=== PATIENT | female | born 1985 | race Caucasian/White ===

== ENCOUNTER 2019-10-02 10:33 | Inpatient (IN) | payer OTHER ==
--- NOTE | 2019-10-02 11:03 | ED ---
Psychiatric Complaint - HPI Summary HPI Summary: 33-year-old female presents to the emergency department today with a chief complaint of auditory hallucinations and feeling unwell for approximately 48-72 hours. The patient currently denies suicidal ideation or homicidal ideation. Patient denies physical pain at this time. Patient states she had some wine yesterday evening but has had no more recent alcohol use or recreational drug use. Patient is tangential in conversation and is unable to answer many of our questions. Patient is calm and pleasant however, confused. Patient denies fever, chest pain, abdominal pain, pain with urination, rash. Surgical history and family history is not contributory. Patient's significant other is with her who states he is concerned for her mental well-being and believes she is having a "psychotic break." - History Of Current Complaint Chief Complaint: EDMentalHealth Time Seen by Provider: 10/02/19 10:50 Hx Obtained From: Patient, Family/[place] - boyfriend Onset/Duration: Gradual Onset Timing: Constant Severity Initially: Moderate Severity Currently: Moderate Character: Anxious Associated Signs And Symptoms: Positive: Hallucinating, Paranoid Behavior, Sleep Disturbance, Appetite Change Related History: Positive For: Prior Psychiatric Issues Has Suicidal: Denies: Thoughts Has Homicidal: Denies: Thoughts - Allergies/Home Medications Allergies/Adverse Reactions: Allergies Allergy/AdvReac Type Severity Reaction Status Date / Time No Known Allergies Allergy Verified 10/02/19 10:44 Home Medications: Home Medications Levonorgestrel (IUD) (NF) [Mirena (NF)] 20 mcg IU ONCE 10/02/19 [History Confirmed 10/02/19] PMH/Surg Hx/FS Hx/Imm Hx Infectious Disease History: No Infectious Disease History: Denies: Traveled Outside the [place] in Last 30 Days Review of Systems Constitutional: Negative Eyes: Negative ENT: Negative Cardiovascular: Negative Respiratory: Negative Gastrointestinal: Negative Genitourinary: Negative Musculoskeletal: Negative Skin: Negative Neurological/Mental Status: Negative Psychological: Normal All Other Systems Reviewed And Are Negative: Yes Physical Exam - Summary Physical Exam Summary: Patient is tangential and conversation. Patient is in no acute distress. Patient makes poor eye contact and conversation. Affect normal. Triage Information Reviewed: Yes Vital Signs On Initial Exam: Initial Vitals Temp Pulse Resp BP Pulse Ox 98.9 F 101 18 144/107 98 10/02/19 10:36 10/02/19 10:36 10/02/19 10:36 10/02/19 10:36 10/02/19 10:36 Vital Signs Reviewed: Yes Appearance: Positive: Well-Appearing, No Pain Distress, Well-Nourished Skin: Positive: Warm, Skin Color Reflects Adequate Perfusion Eyes: Positive: EOMI, MARQUITA ENT: Positive: Hearing grossly normal Respiratory/Lung Sounds: Positive: Clear to Auscultation, Breath Sounds Present Cardiovascular: Positive: RRR, S1, S2 Abdomen Description: Positive: Nontender, Soft Bowel Sounds: Positive: Present Musculoskeletal: Positive: Normal, Strength/ROM Intact Neurological: Positive: Sensory/Motor Intact, Alert, Oriented to Person Place, Time, Normal Gait, Facial Symmetry, Speech Normal Psychiatric: Positive: Normal, Anxious AVPU Assessment: Alert Procedures - Sedation Patient Received Moderate/Deep Sedation with Procedure: No Diagnostics - Vital Signs Vital Signs Temp Pulse Resp BP Pulse Ox 10/02/19 10:36 98.9 F 101 18 144/107 98 - Laboratory Result Diagrams: 10/02/19 11:07 10/02/19 11:07 Lab Statement: Any lab studies that have been ordered have been reviewed, and results considered in the medical decision making process. Course/Dx - Course Course Of Treatment: Patient was evaluated in the emergency department today for suicidal ideation. Patient was seen and examined their vital signs are stable and they were afebrile. Upon arrival to emergency department the patient was placed in a safe room, placed under observation and changed into hospital scrubs. Their belongings were collected and placed in a locked box. Laboratory studies were ordered for mental health clearance including urinalysis and toxicology. Labs returned showing no significant abnormalities. Tox toxicology screening negative. Patient was cleared for mental health evaluation and disposition by psychiatric services. Psychiatry, Dr. Melendez believed the patient would benefit from inpatient treatment. Patient admitted to [facility] psychiatric department on voluntary admission. - Differential Dx/Clinical Impression Differential Diagnosis/HQI/PQRI: Positive: Acute Psychosis, Anxiety, Suicide Attempt, Suicidal Ideation, Suicidal Gesture Provider Diagnosis: Acute psychosis - Physician Notifications Discussed Care Of Patient With: Silvio Melendez - believed the patient would benefit from inpatient treatment. Patient admitted to mental health facility with voluntary admission. Instructed by Provider To: Admit As Inpatient Discharge ED - Sign-Out/Discharge Documenting (check all that apply): Patient Departure - Discharge Plan Condition: Stable [place] [place] Disposition and Condition Condition: STABLE Disposition: Psychiatric Facility [facility]
[2019-10-02 11:15] LABS: Urine Appearance Clear; Urine Bilirubin Negative (Negative); Urine Blood Negative (Negative); Urine Color Straw; Urine Glucose Negative (Negative); Urine Ketones Negative (Negative); Urine Nitrite Negative (Negative); Urine Protein Negative (Negative); Urine Specific Gravity 1.002 (1.010-1.030); Urine Urobilinogen Negative (Negative)
[2019-10-02 11:18] LABS: ABS Lymphocytes 0.9 10^3/ul (1.0-4.8); ABS Monocytes 0.6 10^3/ul (0-0.8); ABS Neutrophils 5.8 10^3/ul (1.5-7.7); Eosinophil % 0.2 %; Hematocrit 43 % (35-47); Hemoglobin 14.5 g/dL (12.0-16.0); Lymphocyte % 12.8 %; Mean Corpuscular HGB Conc 34 g/dL (31-36); Mean Corpuscular Hemoglobin 31 pg (27-31); Mean Corpuscular Volume 91 fL (80-97); Mean Platelet Volume 8.7 fL (7.4-10.4); Nucleated Red Blood Cells % 0.1; Platelet Count 249 10^3/uL (150-450); Red Blood Count 4.72 10^6 /uL (3.70-4.87); Red Cell Distribution Width 13 % (10-15); White Blood Count 7.3 10^3/uL (3.5-10.8)
[2019-10-02 11:35] LABS: ALT 18 U/L (7-52); AST 28 U/L (13-39); Albumin 5.3 g/dL (3.2-5.2); Alkaline Phosphatase 72 U/L (34-104); Anion Gap 10 mmol/L (2-11); BUN/Creatinine Ratio 9.6 (8-20); Blood Urea Nitrogen 8 mg/dL (6-24); CO2 Carbon Dioxide 24 mmol/L (22-32); Calcium 10.2 mg/dL (8.6-10.3); Chloride 105 mmol/L (101-111); EGFR Non-African American 80.2 (>60); Globulin 2.7 g/dL (2-4); Glucose 115 mg/dL (70-100); Potassium 3.8 mmol/L (3.5-5.0); Sodium 139 mmol/L (135-145)
[2019-10-02 11:37] LABS: Urine Benzodiazepine Screen None Detected (None Detect); Urine Opiates Screen None Detected (None Detect)
[2019-10-02 11:52] LABS: Acetaminophen < 15 mcg/mL; Alcohol 11 mg/dL (<10); Salicylate < 2.50 mg/dL (<30)
[2019-10-02 12:07] LABS: TSH (Thyroid Stimulating Horm) 1.22 mcIU/mL (0.34-5.60)
[2019-10-02] MEDS ORDERED: Acetaminophen TAB* 325 MG PO PRN (17:21)
[2019-10-02] MEDS ORDERED: Al Hydrox/Mg Hydrox/Simet LIQ* 30 ML UDC PO PRN (17:21)
[2019-10-02] MEDS ORDERED: hydrOXYzine HCL TAB* 50 MG PO PRN (17:24)
[2019-10-02] MEDS: chlorproMAZINE TAB* 50 MG Q6H PRN AGITATION PO (19:19)
[2019-10-02] MEDS ORDERED: diPHENhydraMINE PO* 50 MG PO ONE (21:28)
[2019-10-02] MEDS ORDERED: Haloperidol TAB* 5 MG PO ONE (21:28)
[2019-10-02] MEDS ORDERED: LORazepam TAB(*) 1 MG PO ONE (21:28)
[2019-10-03] MEDS: chlorproMAZINE TAB* 50 MG Q6H PRN AGITATION PO (03:40)
[2019-10-03] MEDS: Vitamin THERAPEUTIC TAB PO SCH (09:07)
[2019-10-03 10:00] LABS: BUN/Creatinine Ratio 12.6 (8-20); EGFR African American 91.9 (>60); EGFR Non-African American 75.9 (>60); Magnesium 2.2 mg/dL (1.9-2.7); Potassium 3.6 mmol/L (3.5-5.0)
--- NOTE | 2019-10-03 10:17 | CONS ---
CC: Dr. Guzman * CONSULTATION NOTE: DATE OF CONSULT: 10/03/19 REQUESTING PHYSICIAN: Dr. Guzman from Psychiatry. PRIMARY CARE PROVIDER: [facility] Office CHIEF COMPLAINT: "I feel weird." HISTORY OF PRESENT ILLNESS: Mishel Rolle is a 33-year-old female who was brought into the ED for "a psychotic break" on 10/02/19. The patient was delusional, hyperactive overnight, got a dose of Atarax. Today in the morning, when the nurse checked the patient's vitals, heart rate was noted to be in the 170s. The patient otherwise apart feeling tired and having dry mouth did not voice any complaints. Medicine Service was asked to evaluate the patient in regards to tachycardia. PAST MEDICAL HISTORY: The patient does not report any past medical history. PAST SURGICAL HISTORY: No previous surgeries. MEDICATIONS: The patient stated that a couple of days ago, she took a couple of sleeping pills since she could not sleep. She does not remember the name. FAMILY HISTORY: Mother 10 years ago of pancreatic cancer. Father healthy. SOCIAL HISTORY: The patient denies any tobacco, alcohol or drug use. 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 She lives with her boyfriend. REVIEW OF SYSTEMS: The patient stated she feels "wired." She stated that her mouth is dry. She denies any chest pain, shortness of breath, or palpitations. She states that "everyone is worried at [employer] due to Sainz Virus." When asked if she is worried, she stated that she feels safer now. All the remaining 12 systems were reviewed with the patient and were otherwise negative. PHYSICAL EXAMINATION: Blood pressure of 124/82, heart rate of 118 and regular, respiratory rate 16, oxygen saturation 98% on room air, temperature 98.0. General: The patient is a pleasant 33-year-old female who is in any acute distress. She appears to have a flight of ideas, hyperactive, walking down the hallways. Otherwise, in no acute distress. The patient is alert and oriented x2. HEENT: Head atraumatic, normocephalic. Eyes: Pupils are equal and reactive to light and accommodation. Oropharynx is clear. Mucosa moist. Neck : Supple. No JVD. No bruits bilaterally. Cardiovascular: Regular rate and rhythm, tachycardia. No murmur. Respiratory: Clear to auscultation bilaterally. Abdomen: Soft, nontender. Bowel sounds are present in all 4 quadrants. Extremities: There is no edema. Pulses are +2 bilaterally. No clubbing, no cyanosis. Neuro Evaluation: Speech is clear. Cranial nerves II through XII grossly intact. Motor strength is 5/5 bilaterally. DIAGNOSTIC STUDIES/LAB DATA: Obtained yesterday showed white blood cell count of 7.3, hemoglobin of 14.5, hematocrit of 43, and platelets of 249. Sodium is 139, potassium 3.8, chloride 105, carbon dioxide 24, BUN 8, creatinine 0.83. Liver function is unremarkable. TSH of 1.22. Urinalysis was grossly unremarkable with low specific gravity of 1.002. Toxicology screen from yesterday showed alcohol level of 11, otherwise no salicylates, no opiates, no acetaminophen. The patient's EKG showed sinus tachycardia with a heart rate of 118 beats per minute with nonspecific ST changes. There was no old EKG available for comparison. ASSESSMENT AND PLAN: Mishel Rolle is a 33-year-old female who was found to be tachycardic in the morning. I am unsure if she actually had a heart rate in the 170s, although it is possible if she was agitated or upset. Currently, she is tachycardic with the heart rate in the 110s. Her EKG does not show any marked abnormalities. Her electrolytes were okay yesterday. I suspect this is all behavioral. I defer the patient's treatment back to Psychiatry. Thank you very much for allowing our service to see your patient in consultation who we will follow on as needed basis. [id number]/[facility] #: [id number] [facility]
[2019-10-03] MEDS ORDERED: OLANzapine TAB*ODT* 10 MG TAB PO PRN (11:03)
--- NOTE | 2019-10-03 12:31 | PN ---
BSU: Group Therapy Note - Service Type Service Type: 70100 Group Psychotherapy - Cognitive Behavioral Group Note: Mishel was bizarre in group this morning, needing redirection to attend to conversation. She attended briefly before exiting the group.
[2019-10-03 15:08] LABS: ABS Basophils 0.1 10^3/ul (0-0.2); ABS Eosinophils 0.1 10^3/ul (0-0.6); ABS Lymphocytes 1.8 10^3/ul (1.0-4.8); ABS Monocytes 0.5 10^3/ul (0-0.8); ABS Neutrophils 2.8 10^3/ul (1.5-7.7); Eosinophil % 1.9 %; Hematocrit 39 % (35-47); Hemoglobin 13.3 g/dL (12.0-16.0); Lymphocyte % 34.1 %; Mean Corpuscular HGB Conc 34 g/dL (31-36); Mean Corpuscular Hemoglobin 31 pg (27-31); Mean Corpuscular Volume 91 fL (80-97); Mean Platelet Volume 8.9 fL (7.4-10.4); Platelet Count 203 10^3/uL (150-450); Red Blood Count 4.25 10^6 /uL (3.70-4.87); Red Cell Distribution Width 13 % (10-15); White Blood Count 5.3 10^3/uL (3.5-10.8)
--- NOTE | 2019-10-03 19:53 | HP ---
HISTORY AND PHYSICAL: DATE OF ADMISSION: 10/02/19 SUPERVISING PSYCHIATRIST: Dr. Truman Guzman.* (DICTATED BY VIOLETTA CONTRERAS NP) JUSTIFICATION FOR ADMISSION: The patient presented to the emergency department with her fiance due to bizarre behavior, paranoid ideation. She merits hospitalization for immediate safety and stabilization. 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 She has mentioned fears about white supremacist and racism. She presents with thought blocking, internal stimuli and disguarded. During interview, the patient asks if anyone else can hear what she is talking about. She is tangential with flight of ideas. She is difficult to obtain a history from. She reports "this is the second time this has happened to me" in regards to being in the psychiatric unit. She identifies she was hospitalized approximately 6 years ago in [facility]. She reports her sleep has been weird, but is unable to elaborate further. She reports drinking a glass of wine the night before being admitted, but otherwise denies substance use. Her toxicology was negative with the exception of an alcohol level of 11 yesterday morning. According to collateral obtained from the emergency room, the patient has been going to counseling at [facility], but we are unaware of psychiatric medications. She reported concern about white supremacist and racists as stated above. She has endorsed visual and auditory hallucinations. According to her boyfriend, the patient was suddenly "out of touch with reality since Sunday." He was not aware of psychiatric medications or whether she has been taking them. According to collateral obtained from her father, by social work today, the patient has mentioned bipolar disorder and schizophrenia, but is not aware of an official diagnosis and has been hospitalized in [facility] and [facility]. He had created a plan for her to participate in a partial hospitalization and on the first day, it was noted that she needed inpatient, she wanted to leave after 3 days. She then returned to her apartment and slept by the door and would not leave for the first several days. The father, Asa, was unaware of medication history , but he reached out to other family members and as far as we know, she may have been taking a sleep aid, lithium, and quetiapine. The patient was noted to have tachycardia this morning with a heart rate in the 170s. Hospitalist service was consulted and heart rate decreased to 118. EKG was done and there were no marked abnormalities. Electrolytes were within normal limits. No further recommendations at this time. PAST PSYCHIATRIC HISTORY: As stated above. The patient was hospitalized in either 2011 or 2012 in [facility]. She was hospitalized in [facility] for a brief time since that hospitalization. She is currently enrolled in [facility] at [employer]. Medication history that we know of lithium and quetiapine. TRAUMA/ABUSE HISTORY: Unknown at this time. The patient is too disorganized to discuss. MEDICAL HISTORY: The patient denies history of pregnancies. She reports IUD placed approximately 5 years ago. SURGICAL HISTORY: She denies surgical history. MEDICATIONS: She denies current medications. FAMILY PSYCHIATRIC HISTORY: None that we are aware of. SOCIAL HISTORY: The patient is the youngest of 2 siblings by parents who were until her mother suddenly of pancreatic cancer 10 years ago. Her brother lives in [place]. Her father lives in the [place], [place] area. The patient grew up in [place]. She attended [employer] in [place] and obtained both bachelor's degree and master's degree. She reports living in [place] for approximately 4 years. 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 SUBSTANCE USE HISTORY: The patient reports experimenting with drugs in the past , but does not elaborate. She reports drinking a glass of wine the night before admission, but denies consistent alcohol use. REVIEW OF SYSTEMS: Constitutional: Negative. No fever, chills, or fatigue. ENT: Negative. Cardiovascular: Negative. Denies chest pain or palpitations. Respiratory: Negative. Denies shortness of breath or cough. Genitourinary: Negative. Musculoskeletal: Negative. Neurological: Negative. PHYSICAL EXAMINATION APPEARANCE: Well appearing and no pain or distress, adequately nourished. VITAL SIGNS: T 98.2, P 118, respiratory rate 18, O2 saturation 100%, BP 122/ 75. She is 5 feet 10 inches, 150 pounds. HEENT: Eyes: EOMI. PERRLA. ENT: Hearing grossly normal. RESPIRATORY: Lung sounds clear to auscultation. Breath sounds present. CARDIOVASCULAR: RRR. S1, S2. ABDOMEN: Nontender, soft. Bowel sounds present. MUSCULOSKELETAL: Normal strength. ROM intact. NEUROLOGICAL: Sensory and motor intact. Alert and oriented to person, place, time. Normal gait noted. Speech normal. Facial symmetry. SKIN: Warm. Skin color reflects adequate perfusion. DIAGNOSTIC STUDIES/LAB DATA: CBC within normal limits. CMP generally unremarkable. HCG negative. TSH normal at 1.22. Urinalysis within normal limits. Toxicology negative for salicylates or acetaminophen. Serum alcohol of 11 yesterday morning. Urine drug screen negative. MENTAL STATUS EXAM: The patient is a 33-year-old white female, tall, thin framed, who appears stated age. She is disheveled and wearing hospital scrubs. She is pleasant upon approach and appears to be a poor historian. She is alert and oriented x3. Eye contact is inconsistent. Speech is soft with latencies noted. Concentration poor. Memory 3/3. Mood is euthymic with blunted affect. No abnormal psychomotor activity noted. Thought process is tangential. Thought content is positive for paranoid ideation. She denies SI, HI, or . She has endorsed auditory and visual hallucinations. She has delusions of grandeur as well as persecution. Insight and judgment are impaired. She has at least an average intellect and her fund of knowledge is minimal at this time. DIAGNOSES: 1. Unspecified psychotic disorder. 2. Rule out bipolar disorder with psychotic features. 3. Rule out schizoaffective disorder. 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 and [facility]. She presented to the ED with her fiance due to paranoid ideation and bizarre behavior. She had been prescribed psychiatric medications in the past, but it is unclear if she is currently prescribed medications. She has been seeing counselors at [facility] at [employer]. PLAN: The patient is admitted to adult behavioral services unit on voluntary status. We converted her to 2PC status due to her incapacitating presentation. We have started olanzapine to promote quick stabilization. We will consider lithium when more history is obtained. She is placed on 15 minute checks for safety. She is encouraged to participate in supportive milieu and psychoeducational groups when able to do so. Estimated length of stay is 1 week. Discharge planning will include family and [employer] [facility]. VIOLETTA CONTRERAS NP [id number]/[facility] #: [id number] [place]
[2019-10-03] MEDS: OLANzapine TAB*ODT* 5 MG PO SCH ×2 (21:43→21:46)
[2019-10-04] MEDS: OLANzapine TAB*ODT* 10 MG TAB PO PRN (00:39)
[2019-10-04] MEDS: Vitamin THERAPEUTIC TAB PO SCH (09:01)
--- NOTE | 2019-10-04 18:44 | PN ---
Subjective - Subjective Date of Service: 10/04/19 Service Type: 88428 Hosp care 15 min low complexity Subjective: Mishel is unable to account clearly for why she is going into others' rooms and putting on their clothes, and so on. She is odd in her interaction with me, for example laying on her back on the floor as she is speaking with me. She denies any intent or plan to harm herself or others . She is somewhat equivocal in her denial of PI, but she denies it. She keeps a pleasant tone and demeanor in her odd interactions. Objective - General Observations Appearance: Neat, Well Groomed Appears Stated Age: Yes Stature: WNL Posture: WNL Eye Contact: Average Behavior/Activity: Peculiar - Interaction Observations Attitude Towards Examiner: Cooperative, Confused - but pleasantly and not in all matters Stated Mood: Silly Affect: Full Speech Pattern/Tone: Clear, Normal Volume, Inappropriate Thought Process: Disorganized - as regards accounting of circumstances of admission, but not on microscale of conversational engagement in the moment Thought Content: Paranoid Hallucination Type: Denies Delusion Type: Denies - Cognitive Function Orientation: A&O x 4 Level of Consciousness: Awake, Alert, Appropriate, Arousable Cognition: Impaired Cognition Estimated Intelligence: Above Normal Insight: Difficulty Acknowledging Presence of Psyciatric Problems Judgment Within Normal Limits: No Ability to Make Reasonable Decisions: Serverely Impaired - Medication Compliance Cooperative with Inpatient Medication Regimen: Yes - Group Participation Participates in Group Activities: Partial Assessment - Assessment Merits Inpatient Hospitalization: For Immediate Safety, For Stabilization, Diagnosis Determination, To Initiate Treatment, For Ongoing Evaluation, For Discharge Planning Inpatient DSM-V Dx: F20.9 Clinical Impression: Mishel is most notably disorganized in her behavior, and reports insight that this is so. She had been showing signs of responding to internal stimuli and reported PI on admission, and continues to present that way. She declines starting Depakote or lithium. She has been taking a low dose of Zyprexa, might benefit from increased dose: will broach this with her and increase HS dose to 10 mg tonight if she agrees. Collateral from [facility] at [facility] seems spencer to understanding this pleasantly psychotic young woman. Plan - Plan Treatment Plan: Name: MISHEL CORRALES Birthdate: 1985 [id number] Collateral from [facility] providers on [place]. Increase Zyprexa tonight if she is agreeable. Remains for now on constant observation to prevent potential verbal/physical violence with other patients due to intrusively disorganized behavior, albeit pleasantly so. Medications: Current Medications Acetaminophen (Tylenol Tab*) 650 mg PO Q4H PRN PRN Reason: PAIN or TEMP > 101 F Al Hydrox/Mg Hydrox/Simethicone (Maalox Plus*) 30 ml PO Q4H PRN PRN Reason: INDIGESTION Multivitamins (Theragran Tab*) 1 tab PO DAILY ENRIQUE Last Admin: 10/04/19 09:01 Dose: Not Given Olanzapine (Zyprexa * Tab Odt) 5 mg PO BEDTIME ENIRQUE Last Admin: 10/03/19 21:46 Dose: Not Given Olanzapine (Zyprexa *Odt*) 5 mg PO Q6H PRN PRN Reason: AGITATION Last Admin: 10/04/19 00:39 Dose: 5 mg - Discharge Plan Discharge Plan: Outpatient Follow Up
[2019-10-04] MEDS: OLANzapine TAB*ODT* 5 MG PO SCH ×2 (21:06→21:15)
[2019-10-05] MEDS: Vitamin THERAPEUTIC TAB PO SCH (07:29)
[2019-10-05] MEDS: OLANzapine TAB*ODT* 10 MG TAB PO PRN (14:33)
[2019-10-05] MEDS: OLANzapine TAB*ODT* 5 MG PO SCH (20:57)
[2019-10-06] MEDS: OLANzapine TAB*ODT* 10 MG TAB PO PRN (05:47)
[2019-10-06 08:18] LABS: HDL Cholesterol 116.8 mg/dL
[2019-10-06] MEDS: Vitamin THERAPEUTIC TAB PO SCH (09:36)
--- NOTE | 2019-10-06 14:10 | PN ---
Subjective - Subjective Date of Service: 10/06/19 Service Type: [id number] Hosp care 35 min high complexity Subjective: Patient is pleasant during conversation this morning. She states she is worried about "kids and the dark internet" and tangents to exploitation of women in [place]. She also speaks of confusion that she is living in her fiance's home and that there are things in the house that belonged to his ex- . Team Driver and Julee Akhtar LCSW met with patient and her father, Erik. Erik left the room with Julee to obtain information from his phone. In the meantime, Dao asked about her diagnosis. She opposed having bipolar disorder and was irritable. She left the room multiple times as Julee and I spoke with her father. She eventually remained in the room but stood in the corner for some time until she sat at the table. Patient and her father were given information about symptomology coinciding with bipolar disorder and recommended treatment to include mood stabilizer. Patient gave informed consent to start lithium. Please see SW note for further details. At the end of the meeting, promotion writer walked father to exit and explained that Dao is on constant observation due to her impulsivity and disorganized behavior. He expressed appreciation. Objective - General Observations Appearance: Well Groomed Stature: Thin Posture: WNL Eye Contact: Intense Behavior/Activity: Impulsive, Agitated - Interaction Observations Attitude Towards Examiner: Cooperative, Defensive, Hostile, Mistrustful Attitude Towards Parent/Guardian: Positive Interaction Stated Mood: Irritable Affect: Labile Speech Pattern/Tone: Clear, Quiet Volume Thought Process: Tangential, Over Inclusive, Racing Perception: WNL Thought Content: Paranoid, Grandiose Thought Process: Lethality: Paranoid Ideation Hallucination Type: Denies Delusion Type: Persecution, Grandeur, Islam - Cognitive Function Orientation: A&O x 4 Level of Consciousness: Alert Cognition: Impaired Attention/Concentration Estimated Intelligence: Normal Insight: Difficulty Acknowledging Presence of Psyciatric Problems Judgment Within Normal Limits: No Ability to Make Reasonable Decisions: Serverely Impaired - Medication Compliance Cooperative with Inpatient Medication Regimen: Yes - Group Participation Participates in Group Activities: Partial Assessment - Assessment Merits Inpatient Hospitalization: For Immediate Safety, For Stabilization Inpatient DSM-V Dx: F20.9 Clinical Impression: 33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 She has started lithium and olanzapine and is tolerating well. She merits hospitalization for immediate safety and stabilization. Plan - Plan Treatment Plan: Name: DAO CORRALES Birthdate: 1985 [id number] continue acute intensive psychiatric treatment. Remains for now on constant observation to prevent potential verbal/physical violence with other patients due to intrusively disorganized behavior, albeit pleasantly so. may attend staff pass today with constant obs. start lithium 300mg BID. continue other medications, as ordered. Continued Medication Management: Start Medication Medications: Current Medications Acetaminophen (Tylenol Tab*) 650 mg PO Q4H PRN PRN Reason: PAIN or TEMP > 101 F Al Hydrox/Mg Hydrox/Simethicone (Maalox Plus*) 30 ml PO Q4H PRN PRN Reason: INDIGESTION [place] Carbonate ([place]ios Carbonate Tab*) 300 mg PO BID ENRIQUE Multivitamins (Theragran Tab*) 1 tab PO DAILY [facility] Last Admin: 10/06/19 09:36 Dose: Not Given Olanzapine (Zyprexa *Odt*) 5 mg PO Q6H PRN PRN Reason: AGITATION Last Admin: 10/06/19 05:47 Dose: 5 mg Olanzapine (Zyprexa * Tab Odt) 10 mg PO BEDTIME ENRIQUE Last Admin: 10/05/19 20:57 Dose: 10 mg - Discharge Plan Discharge Plan: Inpatient Hospitalization
[2019-10-06] MEDS: Lithium Carbonate TAB* 300 MG PO SCH ×2 (16:38→21:18)
[2019-10-06] MEDS: OLANzapine TAB*ODT* 5 MG PO SCH (21:18)
[2019-10-07] MEDS: Vitamin THERAPEUTIC TAB PO SCH (08:53)
[2019-10-07] MEDS: Lithium Carbonate TAB* 300 MG PO SCH ×2 (08:53→20:42)
--- NOTE | 2019-10-07 17:12 | PN ---
Subjective - Subjective Date of Service: 10/07/19 Service Type: [id number] Hosp care 35 min high complexity Subjective: Met with patient, her boyfriend Harjit and friend Lacy along with Julee Akhtar LMSW. Patient reports she has been considering events leading to episode. She attributes campaign efforts, political climate and existential crisis. She states she had a meeting with a student of hers that she is worried about. 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 She endorses difficulty focusing, feeling like she has "a ton of adrenaline, lack of sleep. We discuss the above examples are indicative of bipolar christine. Patient and Seph are given recommendations for continuing treatment beyond hospitalization. They inquire about medications, use of alcohol and patient's ability to return to work. 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 Harjit and Lacy related that Mishel is still employed and being funded for her academics. Overall, all participants noted an improvement in Mishel's thought organization. Objective - General Observations Appearance: Well Groomed Stature: Thin Posture: WNL Eye Contact: Average Behavior/Activity: WNL - Interaction Observations Attitude Towards Examiner: Cooperative Stated Mood: Euthymic Affect: Bright Speech Pattern/Tone: Quiet Volume Thought Process: Loose Associations Perception: WNL Thought Content: Paranoid, Grandiose Thought Process: Lethality: Paranoid Ideation Hallucination Type: Denies Delusion Type: Persecution, Grandeur - Cognitive Function Orientation: A&O x 4 Level of Consciousness: Alert Cognition: Impaired Attention/Concentration Estimated Intelligence: Normal Insight: Difficulty Acknowledging Presence of Psyciatric Problems Judgment Within Normal Limits: No Ability to Make Reasonable Decisions: Moderately Impaired - Medication Compliance Cooperative with Inpatient Medication Regimen: Yes - Group Participation Participates in Group Activities: Yes Assessment - Assessment Merits Inpatient Hospitalization: For Immediate Safety, For Stabilization Inpatient DSM-V Dx: F20.9 Clinical Impression: 33yo wf, 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 She has started lithium and olanzapine and is tolerating well. She merits hospitalization for immediate safety and stabilization. Plan - Plan Treatment Plan: Name: MISHEL CORRALES Birthdate: 1985 [id number] continue acute intensive psychiatric treatment. may decrease to q15min and allow staff pass. obtain lithium level after first 5 doses. add hydroxyzine 25mg prn anxiety and continue other medications as ordered. Continued Medication Management: Start Medication Medications: Current Medications Acetaminophen (Tylenol Tab*) 650 mg PO Q4H PRN PRN Reason: PAIN or TEMP > 101 F Al Hydrox/Mg Hydrox/Simethicone (Maalox Plus*) 30 ml PO Q4H PRN PRN Reason: INDIGESTION Hydroxyzine HCl (Atarax Tab*) 25 mg PO Q6H PRN PRN Reason: ANXIETY [place] Carbonate ([place] Carbonate Tab*) 300 mg PO BID [facility] Last Admin: 10/07/19 08:53 Dose: 300 mg Multivitamins (Theragran Tab*) 1 tab PO DAILY [facility] Last Admin: 10/07/19 08:53 Dose: 1 tab Olanzapine (Zyprexa *Odt*) 5 mg PO Q6H PRN PRN Reason: AGITATION Last Admin: 10/06/19 05:47 Dose: 5 mg Olanzapine (Zyprexa * Tab Odt) 10 mg PO BEDTIME [facility] Last Admin: 10/06/19 21:18 Dose: 10 mg - Discharge Plan Discharge Plan: Inpatient Hospitalization
[2019-10-07] MEDS: OLANzapine TAB*ODT* 5 MG PO SCH (20:42)
[2019-10-08] MEDS: hydrOXYzine HCL TAB* 25 MG PO PRN (00:35)
[2019-10-08] MEDS: Vitamin THERAPEUTIC TAB PO SCH (09:16)
[2019-10-08] MEDS: Lithium Carbonate TAB* 300 MG PO SCH ×2 (09:17→21:08)
[2019-10-08] MEDS ORDERED: OLANzapine TAB*ODT* 5 MG PO PRN (10:30)
[2019-10-08] MEDS: OLANzapine TAB*ODT* 5 MG PO SCH (21:09)
[2019-10-09] MEDS: hydrOXYzine HCL TAB* 25 MG PO PRN (01:47)
[2019-10-09] MEDS: Vitamin THERAPEUTIC TAB PO SCH (08:16)
[2019-10-09] MEDS: Lithium Carbonate TAB* 300 MG PO SCH (08:16)
[2019-10-09 08:30] VITALS: BP 124/84
--- NOTE | 2019-10-09 09:04 | PN ---
Subjective - Subjective Date of Service: 10/08/19 Service Type: [id number] Hosp care 35 min high complexity Subjective: Late entry for 10/08/19: Patient exhibited paranoia on the overnight shift. Call Center Team Leader met with patient and her father, along side with Julee Akhtar LMSW. We discussed patient's improvement and expected continued symptoms. During meeting, patient was guarded at times and asked her father to leave when discussing relationship or personal issues she did not want to share with him. Asa obliged. Patient continues to advocate for discharge. She agrees to obtain lithium level and reassess on 10/09/19. Please see SW note for further details. Objective - General Observations Appearance: Well Groomed Stature: Thin Posture: WNL Eye Contact: Average Behavior/Activity: WNL - Interaction Observations Attitude Towards Examiner: Cooperative Attitude Towards Parent/Guardian: Positive Interaction Stated Mood: Euthymic Affect: Bright Speech Pattern/Tone: Clear, Appropriate, Normal Volume Thought Process: Coherent, Loose Associations, Over Inclusive Perception: WNL Thought Content: Paranoid Thought Process: Lethality: Paranoid Ideation Hallucination Type: Denies Delusion Type: Denies - Cognitive Function Orientation: A&O x 4 Level of Consciousness: Alert Cognition: Impaired Attention/Concentration Estimated Intelligence: Normal Insight: WNL Judgment Within Normal Limits: No Ability to Make Reasonable Decisions: Mildly Impaired - Medication Compliance Cooperative with Inpatient Medication Regimen: Yes - Group Participation Participates in Group Activities: Partial Assessment - Assessment Merits Inpatient Hospitalization: For Immediate Safety, For Stabilization, For Discharge Planning, Pending Safe DC Plan Inpatient DSM-V Dx: F20.9 Clinical Impression: 33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 She has started lithium and olanzapine and is tolerating well. She merits hospitalization for immediate safety and stabilization. Plan - Plan Treatment Plan: Name: DAO CORRALES Birthdate: 1985 [id number] continue acute intensive psychiatric treatment. may decrease to q15min and allow staff pass. obtain lithium level this evening. continue other medications as ordered. consider discharge 10/09/19. Medications: Current Medications Acetaminophen (Tylenol Tab*) 650 mg PO Q4H PRN PRN Reason: PAIN or TEMP > 101 F Al Hydrox/Mg Hydrox/Simethicone (Maalox Plus*) 30 ml PO Q4H PRN PRN Reason: INDIGESTION Hydroxyzine HCl (Atarax Tab*) 25 mg PO Q6H PRN PRN Reason: ANXIETY Last Admin: 10/09/19 01:47 Dose: 25 mg [place] Carbonate ([place] Carbonate Tab*) 300 mg PO BID [facility] Last Admin: 10/09/19 08:16 Dose: 300 mg Multivitamins (Theragran Tab*) 1 tab PO DAILY [facility] Last Admin: 10/09/19 08:16 Dose: 1 tab Olanzapine (Zyprexa * Tab Odt) 10 mg PO BEDTIME [facility] Last Admin: 10/08/19 21:09 Dose: 10 mg Olanzapine (Zyprexa * Tab Odt) 5 mg PO Q6H PRN PRN Reason: psychotic agitation - Discharge Plan Outpatient Program: Counseling/Psych Services at [place]
[2019-10-09] MEDS ORDERED: Lithium Carbonate TAB* 300 MG PO SCH (21:00)
[2019-10-10] MEDS ORDERED: Lithium Carbonate TAB* 300 MG PO SCH (09:00)
--- NOTE | 2019-10-10 11:13 | DS ---
CC: Jario CAPS * DISCHARGE SUMMARY: DATE OF ADMISSION: 10/02/19 DATE OF DISCHARGE: 10/09/19 SUPERVISING PSYCHIATRIST: Dr. Truman Guzman * (DICTATED BY VIOLETTA CONRTERAS NP) DISCHARGE DIAGNOSIS: Bipolar I disorder, most recent episode manic with psychotic features. CONDITION AT THE TIME OF DISCHARGE: Improved. The patient is well related, stays calm and in behavior control. She has started a titration of lithium and is tolerating well. She is also taking Zyprexa at bedtime along with as needed for psychotic agitation. The patient is voicing insight in regards to disorganized thinking and bipolar disorder. We have had multiple meetings with the patient, her father, and her boyfriend to discuss diagnosis, treatment planning, and recommendations. The patient continues to have brief episodes of psychotic thinking primarily during the overnight. She and her supports advocate for discharge. The patient reports willingness to continue with ongoing outpatient treatment. She reports the hospital setting to be distressing and advocates to continue convalescing at home. She denies thoughts of suicide. She denies passive wish. At the time of discharge, she denied paranoid ideation. Due to obligation to treat in least restrictive setting, discharge was agreed upon by the treatment team. The patient is discharged to home. MENTAL STATUS EXAM: Mishel is a 33-year-old white female, tall, thin framed, who appears stated age. She is well groomed and casually dressed in her own clothing. She is pleasant and cooperative with interview. She is alert and oriented x3. Eye contact is good. Speech is soft, articulate, and spontaneous. Concentration good. Memory 3/3. Mood is euthymic with bright affect. No abnormal psychomotor activity noted. Thought process is logical, goal directed, and coherent. Thought content is negative for paranoid ideation at the time of discharge. She denies SI, HI, , or passive wish. She denies auditory or visual hallucinations. Insight and judgment are fair and improved. She has at least an average intellect and her fund of knowledge is excellent. INSTRUCTIONS GIVEN TO PATIENT: A. Medications: 1. Hydroxyzine 25 mg p.o. t.i.d. p.r.n. anxiety. 2. [place] carbonate 300 mg p.o. q.a.m. and lithium carbonate 600 mg p.o. q.h.s. 3. Olanzapine 10 mg p.o. q.h.s. and olanzapine 5 mg p.o. daily p.r.n. psychotic agitation. The patient will continue with therapeutic drug levels per outpatient psychiatrist. Her most recent lithium level on 10/08/19 was 0.31 and then we increased the lithium bedtime dose to 600 mg. B. Diet: Regular. C. Activity: Ambulation as tolerated. There are no pending labs or diagnostic studies. D. Followup care. The patient will return to [facility] for continued therapy and referral for psychiatry. E. Substance use followup is not applicable. HOSPITAL COURSE: Part A: Reason for admission: The patient presented to the emergency department with her fiance due to bizarre behavior and paranoid ideation. She merits hospitalization for immediate safety and stabilization. 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 She mentioned fears about white supremacists and racism. She presents with thought blocking, internal stimuli and is guarded. During interview, the patient asks if anyone else can hear what she is talking about. She is tangential with flight of ideas. She is difficult to obtain a history from. She reports "this is the second time this has happened to me" in regards to being in the psychiatric unit. She identifies she was hospitalized approximately 6 years ago in [facility]. She reports her sleep has been weird, but is unable to elaborate further. She reports drinking a glass of wine the night before being admitted, but otherwise denies substance use. Her toxicology was negative with the exception of an alcohol level of 11 yesterday morning. According to collateral obtained from the emergency room, the patient has been going to counseling at [facility], but we are unaware of any psychiatric medications. She has reported concern about white supremacists as stated above. She has endorsed visual and auditory hallucinations. According to her boyfriend, the patient was suddenly "out of touch with reality since Sunday." He was not aware of any psychiatric medications or whether she has been taking them. According to collateral obtained from the father by Social Work, the patient has mentioned bipolar disorder and schizophrenia, but is not aware of any official diagnosis. She has been hospitalized in [facility] and [facility]. He had created a plan for her to participate in a partial hospitalization in [place] and on the first day, it was noted that she needed inpatient. She was admitted voluntarily and wanted to leave after 3 days. She then returned to her apartment and slept by the door and would not leave for the first several days. The father, Asa, was unaware of medication history, but he reached out to other family members and as far as we know, she may have been taking a sleep aid, lithium and quetiapine. The patient was noted to have tachycardia on the morning of admission with heart rate in the 170s. Hospitalist service was consulted and her heart rate had decreased to 118. EKG was done and there were no marked abnormalities. Electrolytes were within normal limits and there were no further recommendations at that time. The patient was not noted to have tachycardia for the rest of the hospitalization. Part B: Psychiatric treatment rendered: The patient was admitted to adult behavioral services unit on voluntary status. We converted her to 2- due to her incapacitating presentation. We started olanzapine to promote quick stabilization. The patient remained on 15-minute checks for most of her admission. She presented pleasant, but concerned about various things in the world, for example, the internet, critical climate, and students who are in danger in schools due to active shooters. The patient was disorganized on the unit often going into other people's rooms and putting on their clothes. We increased the olanzapine to 10 mg at bedtime. We met with her family members multiple times as stated above to discuss presentation and recommendations. The patient agreed to a trial of lithium and started at 300 mg p.o. b.i.d. After 5 doses, we obtained a lithium level that was 0.31. Treatment team recommended that the patient remain overnight to assess for sleep and assess increase in lithium. As stated above, the patient and family members advocated for discharge. She improved greatly with initiating lithium. Especially during the daytime hours, she was much more organized and logical in thought. She was well related. She did exhibit periods of improved sleep. She reported that it was difficult to sleep in this environment due to other patients and frequent safety checks. At the time of discharge, the patient exhibited improved insight into bipolar disorder. We discussed ongoing treatment including counseling at [facility] with her therapist Jacqueline who she is looking forward to continuing with. She will be referred to Psychiatry. The patient is encouraged to remain on treatment and current medications and to work with outpatient psychiatrist regarding changes. The patient has a great support system in her fiance and father. 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 We hope that Mishel does well in the outpatient setting. She reports she is agreeable to return to hospital should symptoms worsen. VIOLETTA CONTRERAS, KIRBY [id number]/CPS #: [id number]
== END 2019-10-09 12:50 | disposition home or self-care (01) | DRG 885 ==
LOC: ED 10:33 → BSU 16:45
PROVIDERS: ADMIT Psychiatry & Neurology Psychiatry; ATTEND Psychiatry & Neurology Psychiatry
DX: F31.2 Bipolar disorder, current episode manic severe with psychotic features (principal); R00.0 Tachycardia, unspecified
CPT/HCPCS: 36415; 80048; 80053; 80061; 80178; 80307; 80320; 80329; 81003; 83036; 83735; 84443; 84484; 84702; 85025; 90853; 93005; 99222; 99231; 99232; 99233; 99238; 99284; A9270-GY; G0480

== ENCOUNTER 2019-11-01 15:45 | Inpatient (IN) | payer OTHER ==
--- NOTE | 2019-11-01 16:18 | ED ---
Psychiatric Complaint - HPI Summary HPI Summary: This patient is a 33 year old female who is a 945 from [facility] with a psychiatric complaint. Pt states she has no SI/HI, does not know why someone would have concern about her mental health today. She reports she saw a new counselor today but did not express any thoughts of self harm. pt calm, cooperative. 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 Partner states the patient not communicating well and jumping from conversation to conversation and [facility] counselor witnessed this behavior, called the director who stated to call the ambulance. Patient reports Hx of anxiety. Medications reviewed, allergies noted. - History Of Current Complaint Chief Complaint: EDMentalHealth Time Seen by Provider: 11/01/19 15:49 Hx Obtained From: Patient, Family/Paper Twister Tender Onset/Duration: Lasting Hours - Allergies/Home Medications Allergies/Adverse Reactions: Allergies Allergy/AdvReac Type Severity Reaction Status Date / Time No Known Allergies Allergy Verified 10/02/19 10:44 Home Medications: Home Medications Levonorgestrel (IUD) (NF) [Mirena (NF)] 20 mcg IU ONCE 10/02/19 [History Confirmed 10/02/19] [place] Carbonate TAB* 300 mg PO QAM #14 tab 10/09/19 [Rx] [place]well Carbonate TAB* 600 mg PO BEDTIME #28 tab 10/09/19 [Rx] OLANzapine TAB*ODT* [ZyPREXA * 5 MG TAB ODT] 5 mg PO DAILY PRN #10 tab [Rx] OLANzapine TAB*ODT* [ZyPREXA * 5 MG TAB ODT] 10 mg PO BEDTIME #28 tab 10/09 [Rx] hydrOXYzine HCL TAB* [Atarax 25 MG TAB*] 25 mg PO TID PRN #42 tab 10/09/19 [Rx] PMH/Surg Hx/FS Hx/Imm Hx Endocrine/Hematology History: Denies: Hx Diabetes Cardiovascular History: Denies: Hx Coronary Artery Disease Sensory History: Denies: Hx Contacts or Glasses, Hx Hearing Aid Opthamlomology History: Denies: Hx Contacts or Glasses Psychiatric History: Reports: Hx Bipolar Disorder Denies: Hx Eating Disorder, Hx Depression, Hx Post Traumatic Stress Disorder , Hx Schizophrenia, Hx Suicide Attempt Infectious Disease History: No Infectious Disease History: Denies: Traveled Outside the [place] in Last 30 Days - Family History Known Family History: Negative: Seizure Disorder - Social History Alcohol Use: Weekly Alcohol Amount: 1 drink today Substance Use Type: Reports: None Substance Use Comment - Amount & Last Used: Some cocaine use in college 10 years ago Smoking Status (MU): Former Smoker Type: Cigarettes Review of Systems Negative: Fever Psychological: Other - Behavioral changes All Other Systems Reviewed And Are Negative: Yes Physical Exam - Summary Physical Exam Summary: Constitutional: Well-developed, Well-nourished, Alert. (-) Distressed Skin: Warm, Dry HENT: Normocephalic; Atraumatic Eyes: Conjunctiva normal Neck: Musculoskeletal ROM normal neck. (-) JVD, (-) Stridor, (-) Tracheal deviation Cardio: Rhythm regular, rate normal, Heart sounds normal; Intact distal pulses; The pedal pulses are 2+ and symmetric. Radial pulses are 2+ and symmetric. (-) Murmur Pulmonary/Chest wall: Effort normal. (-) Respiratory distress, (-) Wheezes, (-) Rales Abd: Soft, (-) tenderness, (-) Distension, (-) Guarding, (-) Rebound Musculoskeletal: (-) Edema Lymph: (-) Cervical adenopathy Neuro: Alert, Oriented x3 Psych: Mood and affect Normal Triage Information Reviewed: Yes Vital Signs On Initial Exam: Initial Vitals Temp Pulse Resp BP Pulse Ox 98.9 F 109 18 137/93 100 11/01/19 15:51 11/01/19 15:51 11/01/19 15:51 11/01/19 15:51 11/01/19 15:51 Vital Signs Reviewed: Yes Procedures - Sedation Patient Received Moderate/Deep Sedation with Procedure: No Diagnostics - Vital Signs Vital Signs Temp Pulse Resp BP Pulse Ox 11/01/19 15:51 98.9 F 109 18 137/93 100 - Laboratory Result Diagrams: 11/01/19 16:57 11/01/19 16:57 Lab Statement: Any lab studies that have been ordered have been reviewed, and results considered in the medical decision making process. Course/Dx - Course Course Of Treatment: Patient is here with a mental health referral. Patient is on 945. Patient is medically cleared by myself. Patient was evaluated by the psychiatric team and admitted involuntarily. - Differential Dx/Clinical Impression Provider Diagnosis: Bipolar 1 disorder, manic, moderate Discharge ED - Sign-Out/Discharge Documenting (check all that apply): Patient Departure - Admission 939 per [facility], Dr. Michaud, Psychiatry. - Discharge Plan Condition: Stable Disposition: PSYCHIATRIC FACILITY-[facility] Referrals: [facility] - Jairo VALENCIA [Primary Care Provider] - - Billing Disposition and Condition Condition: STABLE Disposition: Psychiatric Facility [facility] - Attestation Statements Document Initiated by Scribe: Yes Documenting Scribe: Asa Ivey Provider For Whom Scribe is Documenting (Include Credential): Erwin Porter MD Scribe Attestation: Asa Phelps, scribed for Erwin Porter MD on 11/01/19 at 1853. Scribe Documentation Reviewed: Yes Provider Attestation: The documentation as recorded by the scribeAsa accurately reflects the service I personally performed and the decisions made by me, Erwin Porter MD Status of Scribe Document: Viewed
[2019-11-01 16:58] LABS: Urine Appearance Clear; Urine Bilirubin Negative (Negative); Urine Blood 1+ (Negative); Urine Color Yellow; Urine Glucose Negative (Negative); Urine Ketones Negative (Negative); Urine Nitrite Negative (Negative); Urine Protein Negative (Negative); Urine Specific Gravity 1.012 (1.010-1.030); Urine Urobilinogen Negative (Negative)
[2019-11-01 17:02] LABS: Urine Bacteria 1+ (Absent); Urine Red Blood Cell Trace(0-2/hpf) (Absent); Urine Squamous Epithelial Cell Present (Absent); Urine White Blood Cell Trace(0-5/hpf) (Absent)
[2019-11-01 17:04] LABS: ABS Lymphocytes 1.2 10^3/ul (1.0-4.8); ABS Monocytes 0.6 10^3/ul (0-0.8); ABS Neutrophils 7.5 10^3/ul (1.5-7.7); Eosinophil % 0.3 %; Hematocrit 42 % (35-47); Hemoglobin 14.4 g/dL (12.0-16.0); Lymphocyte % 12.6 %; Mean Corpuscular HGB Conc 35 g/dL (31-36); Mean Corpuscular Hemoglobin 31 pg (27-31); Mean Corpuscular Volume 90 fL (80-97); Mean Platelet Volume 8.1 fL (7.4-10.4); Platelet Count 284 10^3/uL (150-450); Red Cell Distribution Width 13 % (10-15); White Blood Count 9.4 10^3/uL (3.5-10.8)
[2019-11-01 17:09] LABS: Urine Benzodiazepine Screen None Detected (None Detect); Urine Opiates Screen None Detected (None Detect)
[2019-11-01 17:21] LABS: ALT 33 U/L (7-52); AST 30 U/L (13-39); Albumin 4.9 g/dL (3.2-5.2); Alkaline Phosphatase 72 U/L (34-104); Anion Gap 8 mmol/L (2-11); Blood Urea Nitrogen 12 mg/dL (6-24); CO2 Carbon Dioxide 26 mmol/L (22-32); Calcium 10.2 mg/dL (8.6-10.3); Chloride 105 mmol/L (101-111); EGFR African American 93.1 (>60); Globulin 2.4 g/dL (2-4); Glucose 125 mg/dL (70-100); Potassium 4.1 mmol/L (3.5-5.0); Sodium 139 mmol/L (135-145); Total Protein 7.3 g/dL (6.4-8.9)
[2019-11-01 19:40] LABS: Acetaminophen < 15 mcg/mL; Alcohol < 10 mg/dL (<10); Salicylate < 2.50 mg/dL (<30)
[2019-11-01] MEDS ORDERED: Al Hydrox/Mg Hydrox/Simet LIQ* 30 ML UDC PO PRN (22:00)
[2019-11-01] MEDS ORDERED: Acetaminophen TAB* 325 MG PO PRN (22:00)
[2019-11-01] MEDS ORDERED: OLANzapine TAB* 5 MG PO PRN (22:14)
[2019-11-02] MEDS: OLANzapine TAB* 5 MG PO SCH ×2 (03:54→19:32)
[2019-11-02] MEDS: Lithium Carbonate TAB* 300 MG PO SCH ×3 (03:54→19:32)
[2019-11-02] MEDS: Vitamin THERAPEUTIC TAB PO SCH (10:54)
--- NOTE | 2019-11-02 15:25 | HP ---
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 CHIEF COMPLAINT: "Disorganized thoughts and behaviors." HISTORY OF PRESENT ILLNESS: Mishel was brought to the emergency room by her partner who is also a PhD student at [employer] due to disorganization of her thoughts and behaviors. She was not making any sense at that time and may have verbalized thoughts that she was not feeling safe in the environment, which she reiterated during today's evaluation as well. She appears to be scanning around her environment and repeats the questions asked of her and very guarded. Overall, she is a very poor historian and majority of the information was obtained from her partner, who reported that he could not assure safety in the house because of her disorganization. Mishel reported that she has not had slept for days because of her mind racing and had hard time elaborating on that issue. Although she was found to be responding to some internal stimuli during the evaluation, she would not directly answer the questions for auditory/visual hallucinations; however, her partner reported that she may have been experiencing both. Please review Karin's history and physical done on for prior history, which is almost similar and has more detailed information. PAST PSYCHIATRIC HISTORY: Remarkable for multiple prior psychiatric hospitalizations, three here, one in [facility], and one in [facility]. She has history of either noncompliance or partial compliance with all her medications. Today, she could not answer the question whether she takes medications or not. She is currently enrolled in [facility] at [employer] and does not remember her prescriber's or the therapist's name. PAST MEDICAL HISTORY: The patient appears to be physically healthy and she denies having any acute or chronic physical health conditions. CURRENT MEDICATIONS: Include: 1. [place]. 2. Zyprexa. ALLERGIES: No known drug allergies. FAMILY HISTORY: Unknown at this time. 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 She is single, but has a partner. She is the youngest of 2 siblings from an intact family; however, her mother from pancreatic cancer 10 years ago. Her brother lives in [facility] and father lives in [place]. Mishel was born and grew up in [place], [place] where she went to school and college and obtained a bachelor's and a master's degree. She has been living in [place] for the last 4 years or so. She does not have any substance abuse history. PHYSICAL EXAMINATION GENERAL: She does not appear to be in any acute physical distress. VITAL SIGNS: Unremarkable. Physical exam was offered and deferred per the patient's request. LABORATORY DATA: Labs done in the emergency room were all within normal limits. MENTAL STATUS EXAMINATION: Mishel is a healthy-appearing, appropriately dressed, neatly groomed female, who is alert and oriented to time, place, and person. She makes intermittent eye contact, at times intense stare. Her speech is disjointed, jumps from topics to topics; fidgety and restless during the interview. Her attention and concentration are very poor. When questions are asked, she repeats the questions back to the examiner. There are times she appeared to be responding to internal stimuli; however, would not directly answer the question of hearing voices or seeing things. She will say "I hear your voice and see you sitting in front of me and I saw somebody walking by the hallway." These are the answers she gives. Her intelligence appears to be average as evidenced by her vocabulary, educational background, and fund of knowledge. Memory functions at this time are impaired. Her insight and judgment also impaired. At this time, she denies any suicidal or homicidal ideations; however, she is unsafe by herself whether here or at home because of her inability to care for self or protect herself. SUMMARY: This 33-year-old female, with multiple prior psychiatric hospitalizations almost under similar circumstances, was rehospitalized last evening in the context of disorganization of her thoughts and behaviors and posing a risk to self-harm as she could not care for self in the community. DIAGNOSTIC IMPRESSION: MENTAL HEALTH DIAGNOSIS: Schizoaffective disorder, bipolar type; rule out bipolar 1 disorder; current episode manic, with psychosis. PHYSICAL HEALTH DIAGNOSIS: None. TREATMENT RECOMMENDATIONS: Mishel should remain hospitalized on the behavioral science unit for her safety, diagnostic clarification, and rapid stabilization of her manic and psychotic symptoms. She needs to be very closely monitored for her safety. Her code status will remain full. At this time, due to her disorganization, it was practically impossible to have any conversation with regards to her medications; however, we will continue to offer her outpatient medicine and defer that adjustment to medication or change of medication to her assigned psychiatrist. She might need adjustment to her psychotropic medications. [id number]/[facility] #: [id number] ALFREDO
[2019-11-02] MEDS: hydrOXYzine HCL TAB* 25 MG PO PRN (22:36)
[2019-11-03] MEDS: Vitamin THERAPEUTIC TAB PO SCH (07:58)
[2019-11-03] MEDS: Lithium Carbonate TAB* 300 MG PO SCH ×2 (07:58→20:06)
[2019-11-03] MEDS: OLANzapine TAB* 5 MG PO PRN (13:41)
--- NOTE | 2019-11-03 15:14 | PN ---
Subjective - Subjective Date of Service: 11/03/19 Service Type: 35152 Hosp care 25 min moderate complexity Subjective: Dao presents as hypertalkative and highly distractable. She exhibits flight of ideas with grandiose ideation. She states "i'm ok, we're all ok...because I did something." She goes on to describe sending a naked picture of herself in 2014 to her friend in [place], because she thought she looked good in it. She states that her neighbor, Blaise, is in real estate "so he knows about the currency." She inquires about the legal drinking age in [place] then states she wants to arrange a meeting with people of congress, the assembly woman, and staff. In regards to treatment adherence, she reports "easing myself off" from medications approx 2 weeks ago. She states she has been to see Dr Chaudhry at [facility] and states "it was just for mental health; not to get a background check to buy a gun." Patient gave me permission to speak with her father, Erik Corrales, as he requested to speak. [employer] spoke with Erik via phone at [phone]. He expresses concern that last discharge plan failed. He was not aware that she had stopped taking medications. He states he would like to suggest that she return to their home in [place] after discharge. He is receptive to treatment team suggestions. Objective - General Observations Appearance: Unkempt Stature: Thin Posture: WNL Eye Contact: Intense Behavior/Activity: Peculiar, Impulsive - Interaction Observations Attitude Towards Examiner: Cooperative Stated Mood: Elevated Affect: Restricted Speech Pattern/Tone: Rambling, Excessive, Quiet Volume Thought Process: Flight of Ideas Perception: WNL Thought Content: Paranoid, Grandiose Thought Process: Lethality: Paranoid Ideation Hallucination Type: Denies Delusion Type: Persecution, Grandeur - Cognitive Function Orientation: A&O x 4 Level of Consciousness: Alert Cognition: Impaired Attention/Concentration Estimated Intelligence: Normal Insight: Difficulty Acknowledging Presence of Psyciatric Problems Judgment Within Normal Limits: No Ability to Make Reasonable Decisions: Serverely Impaired - Medication Compliance Cooperative with Inpatient Medication Regimen: Yes - Group Participation Participates in Group Activities: No Assessment - Assessment Merits Inpatient Hospitalization: For Immediate Safety, For Stabilization Inpatient DSM-V Dx: F31.2 Clinical Impression: 33yo wf with history of bipolar disorder who returns within 30days of discharge with grossly disorganized behavior and psychotic thought processes in the context of stopping medications on her own. Patient merits hospitalization for immediate safety and stabilization. Plan - Plan Treatment Plan: Name: DAO CORRALES Birthdate: 1985 [id number] continue acute intensive psychiatric treatment. maintain 15min safety checks and mouth checks per unit protocol. continue current medications. obtain lithium level on am of 11/05/19. collaborate with [facility]. Medications: Current Medications Acetaminophen (Tylenol Tab*) 650 mg PO Q4H PRN PRN Reason: PAIN or TEMP > 101 F Al Hydrox/Mg Hydrox/Simethicone (Maalox Plus*) 30 ml PO Q4H PRN PRN Reason: INDIGESTION Hydroxyzine HCl (Atarax Tab*) 25 mg PO TID PRN PRN Reason: ANXIETY Last Admin: 11/02/19 22:36 Dose: 25 mg Aneth Carbonate (Aneth Carbonate Tab*) 600 mg PO BEDTIME ENRIQUE Last Admin: 11/02/19 19:32 Dose: 600 mg Aneth Carbonate (Aneth Carbonate Tab*) 300 mg PO DAILY ENRIQUE Last Admin: 11/03/19 07:58 Dose: 300 mg Multivitamins (Theragran Tab*) 1 tab PO DAILY ENRIQUE Last Admin: 11/03/19 07:58 Dose: 1 tab Olanzapine (Zyprexa Tab*) 5 mg PO DAILY PRN PRN Reason: PSYCHOTIC AGITATION Last Admin: 11/03/19 13:41 Dose: 5 mg Olanzapine (Zyprexa Tab*) 10 mg PO BEDTIME ENRIQUE Last Admin: 11/02/19 19:32 Dose: 10 mg - Discharge Plan Discharge Plan: Inpatient Hospitalization
[2019-11-03] MEDS: OLANzapine TAB* 5 MG PO SCH (21:22)
[2019-11-04] MEDS: Vitamin THERAPEUTIC TAB PO SCH (09:11)
[2019-11-04] MEDS: Lithium Carbonate TAB* 300 MG PO SCH ×2 (09:13→20:39)
[2019-11-04] MEDS: OLANzapine TAB* 5 MG PO PRN (09:45)
[2019-11-04] MEDS ORDERED: LORazepam TAB(*) 1 MG ONE (09:51)
[2019-11-04] MEDS: LORazepam TAB(*) 1 MG PO ONE ×2 (09:51→10:08)
--- NOTE | 2019-11-04 13:17 | PN ---
Subjective - Subjective Date of Service: 11/04/19 Service Type: 55593 Hosp care 35 min high complexity Subjective: Patient was intrusive during and after treatment team. She presents as labile with periods of agitation and irritability. She is demanding bizzare and tangential requests. She was offered prn olanzapine and spit it out. We met with her and her father, Erik, during visiting hour. She was vague, guarded and disorganized. Patient did relay that olanzapine "made me gain weight" but did not clarify any further in regards to adherence. In fact, when her father asked if she stopped, she retorted with a snarky tone of "did you stop them?!?" Patient left conversation multiple times and when we convened, she exhibited poor boundaries by initiating hugging short story writer and social worker school. Objective - General Observations Appearance: Unkempt Stature: WNL Posture: WNL Eye Contact: Intense Behavior/Activity: Accelerated, Agitated - Interaction Observations Attitude Towards Examiner: Cooperative, Defensive, Demanding Attitude Towards Parent/Guardian: Positive Interaction Stated Mood: Expansive, Irritable Affect: Restricted Speech Pattern/Tone: Excessive, Pressured, Quiet Volume Thought Process: Flight of Ideas Perception: WNL Thought Content: Preoccupation/Ruminations, Paranoid, Grandiose Thought Process: Lethality: Paranoid Ideation Hallucination Type: Denies Delusion Type: Persecution, Grandeur - Cognitive Function Orientation: A&O x 4 Level of Consciousness: Alert Cognition: Impaired Attention/Concentration Estimated Intelligence: Normal Insight: Difficulty Acknowledging Presence of Psyciatric Problems Judgment Within Normal Limits: No Ability to Make Reasonable Decisions: Serverely Impaired - Medication Compliance Cooperative with Inpatient Medication Regimen: Partial - Group Participation Participates in Group Activities: No Assessment - Assessment Merits Inpatient Hospitalization: For Immediate Safety, For Stabilization Inpatient DSM-V Dx: F31.2 Clinical Impression: 33yo wf with history of bipolar disorder who returns within 30days of discharge with grossly disorganized behavior and psychotic thought processes in the context of stopping medications on her own. Patient merits hospitalization for immediate safety and stabilization. Plan - Plan Treatment Plan: Name: DAO CORRALES Birthdate: 1985 [id number] continue acute intensive psychiatric treatment. maintain 15min safety checks and mouth checks per unit protocol. DC scheduled olanzapine. continue olanzapine 5mg daily prn agitation. Start paliperidone 9mg qhs and add lorazepam prn anxiety/agitation. obtain lithium level on am of 11/05/19. collaborate with [facility] and patient family. Continued Medication Management: Start Medication Medications: Current Medications Acetaminophen (Tylenol Tab*) 650 mg PO Q4H PRN PRN Reason: PAIN or TEMP > 101 F Al Hydrox/Mg Hydrox/Simethicone (Maalox Plus*) 30 ml PO Q4H PRN PRN Reason: INDIGESTION Hydroxyzine HCl (Atarax Tab*) 25 mg PO TID PRN PRN Reason: ANXIETY Last Admin: 11/02/19 22:36 Dose: 25 mg [place] Carbonate ([place] Carbonate Tab*) 600 mg PO BEDTIME ENRIQUE Last Admin: 11/03/19 20:06 Dose: 600 mg [place] Carbonate ([place] Carbonate Tab*) 300 mg PO DAILY [facility] Last Admin: 11/04/19 09:13 Dose: 300 mg Lorazepam (Ativan Tab(*)) 1 mg PO Q4H PRN PRN Reason: anxiety/agitation Multivitamins (Theragran Tab*) 1 tab PO DAILY [facility] Last Admin: 11/04/19 09:11 Dose: 1 tab Olanzapine (Zyprexa Tab*) 5 mg PO DAILY PRN PRN Reason: PSYCHOTIC AGITATION Last Admin: 11/03/19 13:41 Dose: 5 mg Paliperidone (Invega Er Tab*) 9 mg PO BEDTIME [facility] - Discharge Plan Discharge Plan: Inpatient Hospitalization
[2019-11-05] MEDS: hydrOXYzine HCL TAB* 25 MG PO PRN (02:22)
[2019-11-05] MEDS: Paliperidone ER TAB* 9 MG TAB.ER PO SCH ×2 (02:27→21:52)
[2019-11-05] MEDS: Vitamin THERAPEUTIC TAB PO SCH (08:04)
[2019-11-05] MEDS: Lithium Carbonate TAB* 300 MG PO SCH ×2 (08:04→20:53)
[2019-11-05] MEDS ORDERED: OLANzapine TAB* 5 MG PO PRN (08:41)
--- NOTE | 2019-11-05 10:54 | PN ---
Subjective - Subjective Date of Service: 11/05/19 Service Type: 43211 Hosp care 25 min moderate complexity Subjective: Patient had nearly no sleep last night. She exhibits paranoid ideation and flight of ideas. Patient reports having a scary dream that she was forced to have an . She denies history of D&C. Patient assured that there is no indication for such. She makes multiple requests to go home, even if for a brief time in the day. When asked if she feels safe, she reports that she does but not her "data." She goes on to explain that staff are taking surveys online , getting paid to do so, then they show up the next day wearing the same shirts. She reports concern about sustainability and [employer] not having enough food. She begins to ask about diagnosis of bipolar disorder. She states the bipolar part of her is "the part that can tell when me and Seph are communicating." Patient asks to leave the room with us to show us something and makes comments about color combination of outfits. She is encouraged to utilize medications and rest to promote stabilization and readiness for discharge. Objective - General Observations Appearance: Unkempt Stature: Thin Posture: WNL Eye Contact: Intense Behavior/Activity: Accelerated, Peculiar, Impulsive - Interaction Observations Attitude Towards Examiner: Cooperative, Mistrustful Stated Mood: Expansive, Irritable Affect: Restricted Speech Pattern/Tone: Excessive, Pressured, Quiet Volume Thought Process: Disorganized, Flight of Ideas Perception: WNL Thought Content: Preoccupation/Ruminations, Paranoid, Grandiose Thought Process: Lethality: Paranoid Ideation Hallucination Type: Denies Delusion Type: Persecution, Grandeur - Cognitive Function Orientation: A&O x 4 Level of Consciousness: Alert Cognition: Impaired Attention/Concentration Estimated Intelligence: Normal Insight: Difficulty Acknowledging Presence of Psyciatric Problems Judgment Within Normal Limits: No Ability to Make Reasonable Decisions: Serverely Impaired - Medication Compliance Cooperative with Inpatient Medication Regimen: Partial - Group Participation Participates in Group Activities: No Assessment - Assessment Merits Inpatient Hospitalization: For Immediate Safety, For Stabilization Inpatient DSM-V Dx: F31.2 Clinical Impression: 33yo wf with history of bipolar disorder who returns within 30days of discharge with grossly disorganized behavior and psychotic thought processes in the context of stopping medications on her own. Patient merits hospitalization for immediate safety and stabilization. Plan - Plan Treatment Plan: Name: DAO CORRALES Birthdate: 1985 [id number] continue acute intensive psychiatric treatment. maintain 15min safety checks and mouth checks per unit protocol. increase olanzapine 5mg daily to BID prn agitation.Increase prn hydroxyzine to 100mg. Continue paliperidone 9mg qhs and lorazepam prn anxiety/agitation. obtain lithium level, fasting hgba1c and lipid panel on am of 11/06/19. collaborate with [facility] and patient family. Continued Medication Management: Start Medication Medications: Current Medications Acetaminophen (Tylenol Tab*) 650 mg PO Q4H PRN PRN Reason: PAIN or TEMP > 101 F Al Hydrox/Mg Hydrox/Simethicone (Maalox Plus*) 30 ml PO Q4H PRN PRN Reason: INDIGESTION Hydroxyzine HCl (Atarax Tab*) 100 mg PO TID PRN PRN Reason: ANXIETY [place] Carbonate (Pisek Carbonate Tab*) 600 mg PO BEDTIME [facility] Last Admin: 11/04/19 20:39 Dose: 600 mg [place] Carbonate (Pisek Carbonate Tab*) 300 mg PO DAILY ENRIQUE Last Admin: 11/05/19 08:04 Dose: 300 mg Lorazepam (Ativan Tab(*)) 1 mg PO Q4H PRN PRN Reason: anxiety/agitation Multivitamins (Theragran Tab*) 1 tab PO DAILY ENRIQUE Last Admin: 11/05/19 08:04 Dose: 1 tab Olanzapine (Zyprexa Tab*) 5 mg PO BID PRN PRN Reason: PSYCHOTIC AGITATION Paliperidone (Invega Er Tab*) 9 mg PO BEDTIME [facility] Last Admin: 11/05/19 02:27 Dose: 9 mg - Discharge Plan Discharge Plan: Inpatient Hospitalization
[2019-11-05 16:45] LABS: HCG Pregnancy < 0.60 mIU/mL
[2019-11-05] MEDS: LORazepam TAB(*) 1 MG PO PRN (22:48)
[2019-11-06 06:53] LABS: HDL Cholesterol 115.1 mg/dL
[2019-11-06 06:59] LABS: Lithium 0.62 mmol/L (0.6-1.2)
[2019-11-06] MEDS: Vitamin THERAPEUTIC TAB PO SCH (09:26)
[2019-11-06] MEDS: Lithium Carbonate TAB* 300 MG PO SCH ×2 (09:26→22:01)
[2019-11-06] MEDS ORDERED: Lithium Carbonate TAB* 300 MG PO ONE (10:31)
--- NOTE | 2019-11-06 10:39 | PN ---
Subjective - Subjective Date of Service: 11/06/19 Service Type: 63805 Hosp care 25 min moderate complexity Subjective: Patient slept briefly yesterday afternoon and approx 4 hours overnight. While awake, patient continues to be disorganized with flight of ideas and bizarre topics of conversation. As I approach her, she is writing on a white board various political names and agencies. During conversation with report writer today, patient was circumstantial about her reproductive system, IUD placement, and whether she can remain a woman. She reports desire to go home and "be with Seph " in order to "get better." Patient is assured that the goal is to treat current episode and prepare her for being discharged. She inquires about taking a nap and utilizing lorazepam, to which report writer agrees. Objective - General Observations Appearance: Unkempt Stature: Thin Posture: WNL Eye Contact: Intense Behavior/Activity: Peculiar - Interaction Observations Attitude Towards Examiner: Cooperative Stated Mood: Expansive Affect: Restricted Speech Pattern/Tone: Perseverating, Quiet Volume Thought Process: Disorganized, Flight of Ideas Perception: WNL Thought Content: Preoccupation/Ruminations, Paranoid, Grandiose Thought Process: Lethality: Paranoid Ideation Hallucination Type: Denies Delusion Type: Persecution, Grandeur, Somatic - Cognitive Function Orientation: A&O x 4 Level of Consciousness: Alert Cognition: Impaired Attention/Concentration Estimated Intelligence: Normal Insight: Difficulty Acknowledging Presence of Psyciatric Problems Judgment Within Normal Limits: No Ability to Make Reasonable Decisions: Serverely Impaired - Medication Compliance Cooperative with Inpatient Medication Regimen: Yes - Group Participation Participates in Group Activities: Partial Assessment - Assessment Merits Inpatient Hospitalization: For Immediate Safety, For Stabilization Inpatient DSM-V Dx: F31.2 Clinical Impression: 33yo wf with history of bipolar disorder who returns within 30days of discharge with grossly disorganized behavior and psychotic thought processes in the context of stopping medications on her own. Patient merits hospitalization for immediate safety and stabilization. Plan - Plan Treatment Plan: Name: DAO CORRALES Birthdate: 1985 [id number] continue acute intensive psychiatric treatment. maintain 15min safety checks and mouth checks per unit protocol. lithium level of 0.62 on am of 11/06/19. increase lithium to 600mg BID. continue other medications, as ordered. consider Invega sustenna JAY per patient consent. collaborate with [facility] and patient family. Continued Medication Management: Start Medication Medications: Current Medications Acetaminophen (Tylenol Tab*) 650 mg PO Q4H PRN PRN Reason: PAIN or TEMP > 101 F Al Hydrox/Mg Hydrox/Simethicone (Maalox Plus*) 30 ml PO Q4H PRN PRN Reason: INDIGESTION Hydroxyzine HCl (Atarax Tab*) 100 mg PO TID PRN PRN Reason: .ANXIETY [place] Carbonate ([place] Carbonate Tab*) 600 mg PO BID ENRIQUE Lorazepam (Ativan Tab(*)) 1 mg PO Q4H PRN PRN Reason: anxiety/agitation Last Admin: 11/05/19 22:48 Dose: 1 mg Multivitamins (Theragran Tab*) 1 tab PO DAILY ENRIQUE Last Admin: 11/06/19 09:26 Dose: 1 tab Olanzapine (Zyprexa Tab*) 5 mg PO BID PRN PRN Reason: PSYCHOTIC AGITATION Last Admin: 11/05/19 10:59 Dose: 5 mg Paliperidone (Invega Er Tab*) 9 mg PO BEDTIME ENRIQUE Last Admin: 11/05/19 21:52 Dose: 9 mg - Discharge Plan Discharge Plan: Inpatient Hospitalization
[2019-11-06] MEDS: LORazepam TAB(*) 1 MG PO PRN ×2 (12:57→19:38)
[2019-11-06] MEDS: Paliperidone ER TAB* 9 MG TAB.ER PO SCH (22:02)
--- NOTE | 2019-11-07 11:03 | PN ---
Subjective - Subjective Date of Service: 11/07/19 Service Type: [id number] Hosp care 25 min moderate complexity Subjective: Received call from patient's boyfriend, Harjit, and he was given update and questions answered. He was supportive and appreciative. Patient pleasant, calm with blunted affect upon approach. She reports feeling torn about relationship with Harjit due to her concern that he is grieving miscarriage and dissolution from previous marriage. She states that Harjit accidentally called her by the name of his ex-. She agrees that she will be able to have conversations with him about this in the future. She states that prior to both recent hospitalizations, they had arguments and attributes those to her being hospitalized. She is somewhat receptive to suggestion that manic symptoms may have attributed to relationship discord. She denies delusional or paranoid thought content. She is encouraged to rest over the weekend while allowing medications to be efficacious. Objective - General Observations Appearance: Well Groomed Stature: Thin Posture: WNL Eye Contact: Average Behavior/Activity: Slowed - Interaction Observations Attitude Towards Examiner: Cooperative Stated Mood: Dysphoric Affect: Blunted Speech Pattern/Tone: Appropriate, Normal Volume, Quiet Volume Thought Process: Loose Associations, Circumstantial Perception: WNL Thought Content: Preoccupation/Ruminations, Grandiose Hallucination Type: Denies Delusion Type: Grandeur - Cognitive Function Orientation: A&O x 4 Level of Consciousness: Alert Cognition: Impaired Attention/Concentration Estimated Intelligence: Normal Insight: Difficulty Acknowledging Presence of Psyciatric Problems Judgment Within Normal Limits: No Ability to Make Reasonable Decisions: Serverely Impaired - Medication Compliance Cooperative with Inpatient Medication Regimen: Yes - Group Participation Participates in Group Activities: Partial Assessment - Assessment Merits Inpatient Hospitalization: For Immediate Safety, For Stabilization Inpatient DSM-V Dx: F31.2 Clinical Impression: 33yo wf with history of bipolar disorder who returns within 30days of discharge with grossly disorganized behavior and psychotic thought processes in the context of stopping medications on her own. Patient merits hospitalization for immediate safety and stabilization. Plan - Plan Treatment Plan: Name: DAO CORRALES Birthdate: 1985 [id number] continue acute intensive psychiatric treatment. may decrease to q30min and allow staff pass. lithium level of 0.62 on am of 11/06/19. increase lithium to 600mg BID. repeat lithium level on 11/10/19. continue other medications, as ordered. consider Invega sustenna JAY per patient consent. collaborate with [facility] and patient family. Continued Medication Management: Consider Medication Medications: Current Medications Acetaminophen (Tylenol Tab*) 650 mg PO Q4H PRN PRN Reason: PAIN or TEMP > 101 F Al Hydrox/Mg Hydrox/Simethicone (Maalox Plus*) 30 ml PO Q4H PRN PRN Reason: INDIGESTION Hydroxyzine HCl (Atarax Tab*) 100 mg PO TID PRN PRN Reason: .ANXIETY [place] Carbonate ([place] Carbonate Tab*) 600 mg PO BID [facility] Last Admin: 11/06/19 22:01 Dose: 600 mg Lorazepam (Ativan Tab(*)) 1 mg PO Q4H PRN PRN Reason: anxiety/agitation Last Admin: 11/06/19 19:38 Dose: 1 mg Multivitamins (Theragran Tab*) 1 tab PO DAILY [facility] Last Admin: 11/06/19 09:26 Dose: 1 tab Olanzapine (Zyprexa Tab*) 5 mg PO BID PRN PRN Reason: PSYCHOTIC AGITATION Last Admin: 11/05/19 10:59 Dose: 5 mg Paliperidone (Invega Er Tab*) 9 mg PO BEDTIME ENRIQUE Last Admin: 11/06/19 22:02 Dose: 9 mg - Discharge Plan Discharge Plan: Inpatient Hospitalization
[2019-11-07] MEDS: Lithium Carbonate TAB* 300 MG PO SCH ×2 (11:53→21:15)
[2019-11-07] MEDS: Vitamin THERAPEUTIC TAB PO SCH (11:53)
[2019-11-07] MEDS: Paliperidone ER TAB* 9 MG TAB.ER PO SCH (21:14)
[2019-11-07] MEDS: LORazepam TAB(*) 1 MG PO PRN (21:36)
[2019-11-08] MEDS: Lithium Carbonate TAB* 300 MG PO SCH ×2 (10:32→21:57)
[2019-11-08] MEDS: Vitamin THERAPEUTIC TAB PO SCH (10:32)
[2019-11-08] MEDS: Paliperidone ER TAB* 9 MG TAB.ER PO SCH (21:58)
[2019-11-08] MEDS: hydrOXYzine HCL TAB* 50 MG PO PRN (22:38)
[2019-11-09] MEDS: LORazepam TAB(*) 1 MG PO PRN ×2 (02:16→20:21)
[2019-11-09] MEDS: Vitamin THERAPEUTIC TAB PO SCH (10:18)
[2019-11-09] MEDS: Lithium Carbonate TAB* 300 MG PO SCH ×2 (10:18→20:22)
[2019-11-09] MEDS: Paliperidone ER TAB* 9 MG TAB.ER PO SCH (20:22)
[2019-11-10] MEDS: hydrOXYzine HCL TAB* 50 MG PO PRN (07:57)
[2019-11-10] MEDS: Vitamin THERAPEUTIC TAB PO SCH (07:58)
[2019-11-10] MEDS: Lithium Carbonate TAB* 300 MG PO SCH ×2 (07:58→20:03)
[2019-11-10] MEDS ORDERED: Polyethylene Glycol 3350* 17 GM PACKET PO PRN (13:59)
[2019-11-10] MEDS ORDERED: Docusate CAP* 100 MG PO PRN (13:59)
--- NOTE | 2019-11-10 16:02 | PN ---
Subjective - Subjective Date of Service: 11/10/19 Service Type: [id number] Hosp care 25 min moderate complexity Subjective: Patient was noted to have bizarre topics of conversation into a portion of the weekend. Yesterday and today, she is well related and demonstrates linear thought content. She reports desire to return home, citing feeling more secure in her own surroundings. She states her father is considering a temporary rental nearby to provide more support after discharge. She c/o constipation and agrees to laxative and stool softener. General Contractor left with patient's boyfriend, Harjit, to discus discharge planning. Objective - General Observations Appearance: Well Groomed Stature: Thin Posture: WNL Eye Contact: Average Behavior/Activity: WNL - Interaction Observations Attitude Towards Examiner: Cooperative Stated Mood: Euthymic Affect: Full Speech Pattern/Tone: Clear, Appropriate, Quiet Volume Thought Process: Coherent, Goal Directed Perception: WNL Thought Content: WNL Hallucination Type: Denies Delusion Type: Denies - Cognitive Function Orientation: A&O x 4 Level of Consciousness: Alert Cognition: WNL Estimated Intelligence: Normal Insight: WNL Judgment Within Normal Limits: Yes - Medication Compliance Cooperative with Inpatient Medication Regimen: Yes - Group Participation Participates in Group Activities: Yes Assessment - Assessment Merits Inpatient Hospitalization: For Immediate Safety, Consolidate Improvements , For Discharge Planning, Pending Safe DC Plan Inpatient DSM-V Dx: F31.2 Clinical Impression: 33yo wf with history of bipolar disorder who returns within 30days of discharge with grossly disorganized behavior and psychotic thought processes in the context of stopping medications on her own. She has stabilized in this structured setting and is tolerating medication changes. Discharge planning in process. Plan - Plan Treatment Plan: Name: DAO CORRALES Birthdate: 1985 [id number] continue acute intensive psychiatric treatment. may decrease to q30min and allow staff pass. lithium level of 0.62 on am of 11/06/19. increase lithium to 600mg BID. repeat lithium level on 11/11/19. add miralax and docusate for constipation. continue other medications, as ordered. consider Invega sustenna JAY per patient consent. collaborate with [facility] and patient family. Continued Medication Management: Consider Medication Medications: Current Medications Acetaminophen (Tylenol Tab*) 650 mg PO Q4H PRN PRN Reason: PAIN or TEMP > 101 F Al Hydrox/Mg Hydrox/Simethicone (Maalox Plus*) 30 ml PO Q4H PRN PRN Reason: INDIGESTION Docusate Sodium (Colace Cap*) 100 mg PO BID PRN PRN Reason: CONSTIPATION Hydroxyzine HCl (Atarax Tab*) 100 mg PO TID PRN PRN Reason: .ANXIETY Last Admin: 11/10/19 07:57 Dose: 100 mg [place] Carbonate ([place] Carbonate Tab*) 600 mg PO BID [facility] Last Admin: 11/10/19 07:58 Dose: 600 mg Lorazepam (Ativan Tab(*)) 1 mg PO Q4H PRN PRN Reason: anxiety/agitation Last Admin: 11/09/19 20:21 Dose: 1 mg Multivitamins (Theragran Tab*) 1 tab PO DAILY [facility] Last Admin: 11/10/19 07:58 Dose: 1 tab Olanzapine (Zyprexa Tab*) 5 mg PO BID PRN PRN Reason: PSYCHOTIC AGITATION Last Admin: 11/05/19 10:59 Dose: 5 mg Paliperidone (Invega Er Tab*) 9 mg PO BEDTIME [facility] Last Admin: 11/09/19 20:22 Dose: 9 mg Polyethylene Glycol/Electrolytes (Miralax (17 Gm Dose Benito)) 17 gm PO DAILY PRN PRN Reason: CONSTIPATION - Discharge Plan Outpatient Program: Counseling/Psych Services at [place]
[2019-11-10] MEDS: Paliperidone ER TAB* 9 MG TAB.ER PO SCH (20:03)
[2019-11-11] MEDS: Lithium Carbonate TAB* 300 MG PO SCH (08:37)
[2019-11-11] MEDS: Vitamin THERAPEUTIC TAB PO SCH (08:37)
--- NOTE | 2019-11-11 11:00 | PN ---
BSU: Group Therapy Note - Service Type Service Type: [id number] Group Psychotherapy - Cognitive Behavioral Group Therapy ( CBT):Patient was attentive and participatory in CBT programming this morning, and remained in good behavioral control. Patient expressed positive insights regarding relevant treatment interventions and goals.
[2019-11-11 13:00] VITALS: BP 111/59
--- NOTE | 2019-11-12 18:24 | DS ---
CC: [facility]* DISCHARGE SUMMARY: DATE OF ADMISSION: 11/01/19 DATE OF DISCHARGE: 11/11/19 SUPERVISING PSYCHIATRIST: Dr. Truman Guzman* (dictated by AMARA Pascual) . DISCHARGE DIAGNOSIS: Bipolar 1 disorder, most recent episode manic with psychotic features. CONDITION AT THE TIME OF DISCHARGE: Improved. The patient was noted to have bizarre topics of conversation and to a portion of previous weekend, yesterday and today, she is well related and demonstrates linear thought content. She reports desire to return home, citing feeling more secure in her own surroundings. She states her father is considering a temporary rental nearby to provide more support after discharge. She complains of constipation and agrees to laxative and stool softener. The patient states understanding of recommendations to continue lithium and Invega and paliperidone and to continue treatment with [facility]. She has been safe on all checks and in behavioral control. She denies thoughts of suicide, harm to self. She denies paranoid ideation. The patient is discharged to home. MENTAL STATUS EXAM: Mishel is a 33-year-old white female, tall, thin-framed, who appears stated age. She is well groomed, casually dressed in her own clothing. She is pleasant, cooperative and answers questions fully. She is a good historian. She is alert and oriented x3. Eye contact is good. Speech is soft, spontaneous. Concentration good. Memory 3/3. Mood is euthymic with bright affect. No abnormal psychomotor activity noted. Thought process is logical, coherent, and goal directed. Thought content is negative for SI, HI, , or paranoid ideation. She denies auditory or visual hallucinations. Insight and judgment are good, improved. She has at least an average intellect and her fund of knowledge is excellent. INSTRUCTIONS GIVEN TO PATIENT: A. Medications: B. Diet: Regular. C. Activity: Ambulation as tolerated. Tobacco cessation is not applicable. There are no pending labs or diagnostic studies. Her most recent lithium level on the morning of discharge, 11/11/19 was normal at 0.74. D. Followup care: The patient is referred back to [facility]. E. Substance use followup is not applicable. HOSPITAL COURSE: Part A: Reason for admission: The patient was rehospitalized on the evening of 10/31/19 under similar circumstances as her last admission to this unit on 10/02/19. HPI: Mishel was brought to the emergency room by her partner due to disorganization of her thoughts and behaviors. She was not making any sense at that time and may have verbalized thoughts that she was not feeling safe in the environment, which she reiterated during today's evaluation as well. She appears to be scanning around her environment and repeats the questions asked of her and is very guarded. Overall, she is a very poor historian and the majority of the information was obtained from her partner, who reported he could not assure safety in the house because of her disorganized behavior. Mishel reported that she has not slept for days because of her mind racing and had a hard time elaborating on that issue. Although, she was found to be responding to some internal stimuli during the evaluation, she would not directly answer the questions for auditory/visual hallucinations; however, her partner reported that she may have been experiencing both. Please review the history and physical done on 10/02/19 for prior history, which is almost similar and has more detailed information. Part B: Psychiatric treatment rendered: The patient was admitted to adult behavioral science unit for her safety and on involuntary status. She was placed on 15-minute checks for safety. Full code status. The patient was guarded and disorganized. She did mention stopping her psychiatric medications. She reported that Zyprexa was causing weight gain and it was likely that she was not taking her lithium as well. Her partner was not aware of medication compliance. Her father flew from [place] to be present for her hospitalization to provide support and was during this hospitalization, the visitors were eventually not allowed to the hospital due to CDC pandemic precautions. We remained in contact with the patient's father and partner throughout her stay. Initially, her father was very concerned that the previous discharge plan had failed. He was given much psychoeducation about bipolar disorder and relapse related to nonadherence to treatment. He advocated very strongly to have the patient discharged to his care when stabilized and return to [place] with him. He was encouraged to await further psychiatric stabilization from the patient before we could commence with discharge planning. We reinstated olanzapine 10 mg at bedtime, lithium 300 mg in the morning and 600 mg at bedtime. For the first few days of her admission and presented as hyper- talkative and highly distractible, she exhibited flight of ideas with grandiosity. She goes on to describe sending a naked picture of herself in 2014 to her friend in [place] because she thought she looks good in it. 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 In regards to treatment adherence, she reported "easing myself off" from medications approximately 2 weeks ago. She stated that she had been to see psychiatrist, Dr. Chaudhry at [facility] and states "it was just for mental health, not to get a background checked by a gun." We utilized olanzapine p.r.n. and hydroxyzine p.r.n. The following day, the patient was intrusive during and after treatment team, she presented as labile with periods of agitation and irritability. She had demands that were bizarre and tangential. She was offered p.r.n. olanzapine and spit it out. We met with her and her father, Erik during visiting hour. She was vague, guarded and disorganized. She did relay that olanzapine "made me gain weight" but did not clarify further in regards to adherence. 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 We discontinued scheduled olanzapine and started paliperidone 9 mg at bedtime. We added lorazepam p.r.n. agitation and continued with olanzapine p.r.n. agitation. That night, the patient had nearly any sleep. The following day, she exhibited paranoid ideation and flight of ideas. She reports having a scary dream that she was forced to have an . She denies history of D and C. She was assured there was no indication for such. test was negative. She makes multiple requests to go home even if for a brief time in the day. When asks if she feels safe, she reports that she does, but not her "data." She goes on to explain that staff are taking surveys online, getting paid to do so, then they show up the next day wearing the same shirts. She reports concern about sustainability and [employer] not having enough food. She begins to ask about the diagnosis of bipolar disorder and she states the bipolar part of her is "the part that can tell when me and staff are communicating." The patient asks to leave the room with us to show us something and makes comments about color or combination of outfits. She is encouraged to utilize medications and rest to promote stabilization and readiness for discharge. We increased dosing of p.r.n. olanzapine. We obtained lithium level on the morning of 11/06/19 which was 0.62. We increased lithium to 600 mg b.i.d. Hemoglobin A1c and lipid panel were within normal limits. I received a call from her boyfriend, Harjit, and he was given an update and questions answered. He was supportive and appreciative. On 11/07/19, the patient was calm with blunted affect. She reported feeling torn about the relationship with Harjit due to her concern that he is grieving on miscarriage and dissolution from previous marriage. She states that Harjit accidentally called her by the name of his ex-. She agrees that she will be able to have conversations with him about this in the future. She states that prior to both recent hospitalizations, they had arguments and attributed those to her being hospitalized. She is somewhat receptive to the suggestion that manic symptoms may have attributed to the relationship discord. She denies delusional or paranoid thought content. She was encouraged to rest over the weekend while allowing medications to be efficacious. The patient was given much information about paliperidone long acting injectable multiple times, but she declined. We repeated the lithium level after the increased dose. The level on 11/10/19 was 0.74. The patient denied untoward effects or excessive sedation. She was increasingly organized and well related. She was no longer voicing paranoid ideation, auditory or visual hallucinations. She did not appear to respond to internal stimuli. She reported readiness for discharge and advocated appropriately to be home and in her comfortable surroundings. She stated understanding of outpatient treatment suggestions returning to [facility] and minimizing exposure to others due to current CDC pandemic recommendations. We hope that Mishel does well in the outpatient setting. She is encouraged to call with any concerns or questions after discharge. VIOLETTA CONTRERAS GUARD MUSEUM [id number]/[facility] #: [id number] [facility] NYACK HOSPITALPurvi
== END 2019-11-11 14:47 | disposition home or self-care (01) | DRG 885 ==
LOC: ED 15:45 → BSU 22:13
PROVIDERS: ADMIT Psychiatry & Neurology Psychiatry; ATTEND Psychiatry & Neurology Psychiatry
DX: F31.2 Bipolar disorder, current episode manic severe with psychotic features (principal); Z91.14 Patient's other noncompliance with medication regimen; Z79.899 Other long term (current) drug therapy; Z80.0 Family history of malignant neoplasm of digestive organs
CPT/HCPCS: 36415; 80053; 80061; 80178; 80307; 80320; 80329; 81003; 81015; 83036; 84702; 85025; 87086; 90853; 99222; 99232; 99233; 99238; 99285; A9270-GY; G0480

== ENCOUNTER 2023-09-03 18:26 | Inpatient (IN) ==
[2023-09-03] MEDS ORDERED: Buffered Lidocaine 1% SYRIN 1 ml INTRADERM ONE ×2 (18:51→20:42)
[2023-09-03 20:16] LABS: Urine Benzodiazepine Screen None Detected (None Detect); Urine Cannabinoids Screen None Detected (None Detect); Urine Opiates Screen None Detected (None Detect)
[2023-09-03] MEDS ORDERED: Lidocaine 1% VIAL 10 MG/ML 30 ML VIAL INJ PRN (20:42)
[2023-09-03] MEDS ORDERED: Lactated Ringers 1000 ml BAG 1,000 ML IV ONE (20:42)
[2023-09-03] MEDS ORDERED: Lactated Ringers 1000 ml BAG 1,000 ML IV SCH (21:00)
[2023-09-03 22:51] LABS: Hematocrit 39.5 % (35-45); Hemoglobin 13.3 g/dL (11.5-14.3); Mean Corpuscular Hemoglobin 29.7 pg (27-33); Mean Corpuscular Hgb Conc 33.8 g/dL (31-36); Mean Platelet Volume 9.4 fL (7.5-11.2); Platelet Count 255 10^3/uL (150-450); Red Blood Count 4.49 10^6/uL (3.63-4.92); Red Cell Distribution Width 13.3 % (12-17); White Blood Count 15.2 10^3/uL (3.8-11.8)
[2023-09-03 23:11] LABS: ABS Eosinophils 0.1 10^3/uL (0.0-0.5); ABS Lymphocytes 1.8 10^3/uL (1.0-4.8); ABS Monocytes 0.8 10^3/uL (0.0-0.9); ABS Neutrophils 12.5 10^3/uL (1.5-7.6); Eosinophil % 0.4 %; Lymphocyte % 11.7 %
[2023-09-04] MEDS ORDERED: OBEPIDURAL (200 ML) 200 ML EPIDURAL ONE (00:07)
[2023-09-04] MEDS ORDERED: fentaNYL 100 mcg/2 ml 50 MCG/ML VIAL ONE ×2 (00:07→13:18)
[2023-09-04] MEDS ORDERED: Bupivacaine 0.25% SDV PF 10 ML VIAL INJ ONE (00:07)
[2023-09-04] MEDS ORDERED: Lidocaine 1.5% EPI 1:200,000 30 ML SDV ONE (00:31)
[2023-09-04] MEDS ORDERED: Lactated Ringers 1000 ml BAG 1,000 ML IV ONE ×2 (01:23→01:28)
[2023-09-04] MEDS ORDERED: Sodium Citrate/Citric Acid LIQ 15 ML UDC PO PRN ×2 (01:23→01:28)
[2023-09-04 01:54] LABS: Urine Appearance Clear; Urine Bilirubin Negative (Negative); Urine Blood 1+ (Negative); Urine Color Yellow; Urine Glucose Negative (Negative); Urine Ketones Trace (Negative); Urine Nitrite Negative (Negative); Urine Protein 1+(30 mg/dL) (Negative); Urine Specific Gravity 1.021 (1.002-1.030); Urine Urobilinogen Negative (Negative)
[2023-09-04] MEDS ORDERED: OBEPIDURAL (200 ML) 200 ML EPIDURAL SCH ×2 (02:00)
[2023-09-04] MEDS ORDERED: Lactated Ringers 1000 ml BAG 1,000 ML IV SCH ×5 (02:00→14:00)
[2023-09-04 02:23] LABS: Urine Bacteria Absent (Absent); Urine Red Blood Cell 3+(>10/hpf) (Absent); Urine Squamous Epithelial Cell Present (Absent); Urine White Blood Cell Trace(0-5/hpf) (Absent)
[2023-09-04] MEDS ORDERED: Oxytocin in LR 20,000 MILLI.UNIT/1,000 ML BAG IV ONE (11:30)
[2023-09-04] MEDS ORDERED: Methylergonovine 0.2 mg AMPULE 1 ml AMP ONE (12:49)
[2023-09-04 13:52] LABS: Platelet Count 206 10^3/uL (150-450)
[2023-09-04] MEDS ORDERED: Dibucaine 1% OINT 28.35 GM TUBE PR PRN (13:53)
[2023-09-04] MEDS ORDERED: Methylergonovine 0.2 mg AMPULE 1 ml AMP IM ONE (13:53)
[2023-09-04] MEDS ORDERED: Witch Hazel PAD JAR TOPICAL PRN (13:53)
[2023-09-04] MEDS ORDERED: ceFAZolin 2 GM/50 ML BAG IV ONE (14:00)
[2023-09-04 14:06] LABS: INR 0.9 (0.83-1.13)
[2023-09-04] MEDS: Oxytocin in LR 20,000 MILLI.UNIT/1,000 ML BAG IV SCH ×2 (14:30→16:41)
[2023-09-04] MEDS ORDERED: Ondansetron 4 mg VIAL 2 MG/ML 2 ml VIAL IV ONE (15:14)
[2023-09-04 15:19] LABS: Hemoglobin 12.8 g/dL (11.5-14.3); Mean Platelet Volume 9.4 fL (7.5-11.2)
[2023-09-04] MEDS: Clindamycin 900 MG/D5W BAG 900 MG/50 ML BAG IVPB SCH (16:13)
[2023-09-04] MEDS ORDERED: Gentamicin ADULT 400 MG in NS 0.9% 100 ml BAG 100 ML IVPB SCH (17:00)
[2023-09-04] MEDS: Ampicillin ADVAN 2 GM in NS 0.9% 100 ml BAG 100 ML IVPB SCH (18:08)
[2023-09-04] MEDS ORDERED: ceFAZolin 2 GM PREMIX 2 GM/50 ML BAG IV ONE (21:30)
[2023-09-05] MEDS: Ampicillin ADVAN 2 GM in NS 0.9% 100 ml BAG 100 ML IVPB SCH ×3 (00:03→12:20)
[2023-09-05] MEDS: Clindamycin 900 MG/D5W BAG 900 MG/50 ML BAG IVPB SCH ×3 (00:45→16:27)
[2023-09-05 07:58] LABS: ABS Eosinophils 0.1 10^3/uL (0.0-0.5); ABS Lymphocytes 1.5 10^3/uL (1.0-4.8); ABS Monocytes 1.2 10^3/uL (0.0-0.9); ABS Neutrophils 12.6 10^3/uL (1.5-7.6); ABS Nucleated RBC 0.01 10^3/ul; Eosinophil % 0.7 %; Hematocrit 34.8 % (35-45); Hemoglobin 11.6 g/dL (11.5-14.3); Lymphocyte % 9.7 %; Mean Corpuscular Hemoglobin 29.4 pg (27-33); Mean Corpuscular Hgb Conc 33.3 g/dL (31-36); Mean Corpuscular Volume 88.3 fL (80-97); Mean Platelet Volume 9.1 fL (7.5-11.2); Platelet Count 183 10^3/uL (150-450); Red Blood Count 3.94 10^6/uL (3.63-4.92); Red Cell Distribution Width 13.7 % (12-17); White Blood Count 15.4 10^3/uL (3.8-11.8)
[2023-09-06 08:42] VITALS: BP 110/68
== END 2023-09-06 12:57 | disposition home or self-care (01) | DRG 541 ==
LOC: MCHOBOUT 18:26 → MCHOB 20:43
PROVIDERS: ADMIT Midwife; ATTEND Midwife